=== PATIENT | male | born 1955 | race Caucasian/White ===

== ENCOUNTER → 2019-03-16 | Outpatient (CLI) | payer OTHER ==
[~2019-03-16] MED LIST: ANTIHISTAMINE PO; Calcium Magnes1 EAC1 PO; FERROUS SULFAT140 MG PO; Fluorouracil10 M1; GABA300 PO; IRON SUPPLEMENT PO; OXYC5 PO; PROC10 PO; VITAMIN B-650 MG PO; Vitamin B-121000 MCG PO
== END ==
LOC: LAB 14:00 → LAB SHORT 14:00
DX: N39.0 Urinary tract infection, site not specified (principal)
CPT/HCPCS: 87086